=== PATIENT | male | born 1975 | race Caucasian/White ===

== ENCOUNTER 2019-02-07 09:21 | Emergency (ER) | payer BC, OTHER ==
[~2019-02-07] VITALS: Ht 177.8 cm; Wt 77.1 kg
[~2019-02-07 09:21] MED LIST: NAPR-243 PO; SULF1TAB38 PO; TRM50T PO; [UNRECOGNIZED DRUG - REMARK]
--- OUTSIDE RECORDS SUMMARY | 2019-02-07 09:27 | XMS REPORT | Continuity of Care Document ---
Author Organization Unknown Address Unknown Allergies Active Description Code Type Severity Reaction Onset Reported/Identified Relationship to Patient Clinical Status Yes NO KNOWN DRUG ALLERGIES UNKNOWN NO KNOWN DRUG ALLERG Yes No Known Drug Allergies [id number] Drug Allergy Unknown N/A 05/16/2013 Medications There is no data. Problems Date Dx Coded Attending Type Code Diagnosis Diagnosed By 08/10/2017 Obed Lentz 274.10 GOUTY NEPHROPATHY, UNSPECIFIED 08/10/2017 Obed Lentz 729.5 PAIN IN LIMB 08/10/2017 Obed Lentz M10.351 GOUT DUE TO RENAL IMPAIRMENT, RIGHT HIP 08/10/2017 Obed Lentz M79.671 PAIN IN RIGHT FOOT 08/10/2017 Obed Lentz 274.10 GOUTY NEPHROPATHY, UNSPECIFIED 08/10/2017 Obed Lentz 729.5 PAIN IN LIMB 08/10/2017 Obed Lentz M10.351 GOUT DUE TO RENAL IMPAIRMENT, RIGHT HIP 08/10/2017 Obed Lentz M79.671 PAIN IN RIGHT FOOT Procedures There is no data. Results Test Result Range Uric Acid - 08/04/17 14:54 Uric Acid 7.9 mg/dL 2.6-7.2 Comprehensive Metabolic Panel - 11/10/17 15:30 Albumin 4.0 g/dL 3.6-5.1 ALP 76 U/L 35-130 ALT 33 U/L 6-45 Anion Gap 14 6-14 AST 19 U/L 2-40 BUN 12 mg/dL 5-25 Calcium 9.4 mg/dL 8.3-10.4 Chloride 110 mmol/L 95-114 CO2 23 mEq/L 22-33 Creat 1.18 mg/dL 0.50-1.50 eGFR 67 mL/min/1.73m2 >59 Globulin 2.9 g/dL 2.3-3.5 Glucose 104 mg/dL 70-110 Osmo 295 280-295 Potassium 4.2 mmol/L 3.5-5.3 Sodium 143 mmol/L 134-148 TBil 1.5 mg/dL 0.2-1.2 TP 6.9 g/dL 6.0-8.3 QuantiFERON Client Incubated - 12/08/17 12:09 QuantiFERON TB Gold Negative Negative QuantiFERON Criteria Comment QuantiFERON TB Ag Value 0.03 IU/mL QuantiFERON Nil Value 0.05 IU/mL QuantiFERON Mitogen Value 6.80 IU/mL QFT TB Ag minus Nil Value <0.00 IU/mL Interpretation: Comment Encounters ACCT No. Visit Date/Time Discharge Status Pt. Type Provider Facility Loc./Unit Complaint [id number] 05/16/2013 00:31:00 05/16/2013 01:52:00 DIS Emergency [id number] 02/07/2019 09:22:00 ACT Emergency ZANE RODRIGUEZ, NIKOLAI Spears Via [facility] ER L HAND INJ [id number] 12/08/2017 12:06:00 12/08/2017 23:59:00 DIS Outpatient Shahab Burroughs [id number] 11/10/2017 15:22:00 11/10/2017 23:59:00 DIS Outpatient Shahab Burroughs [id number] 08/10/2017 10:07:00 08/10/2017 23:59:00 DIS Outpatient Obed Lentz [id number] 08/04/2017 14:47:00 08/04/2017 23:59:00 DIS Outpatient Obed Lentz [id number] 12/14/2017 09:09:00 Document Registration
--- OUTSIDE RECORDS SUMMARY | 2019-02-07 09:27 | XMS REPORT | Continuity of Care Document ---
Author Author [facility] Organization [facility] Address Unknown Phone Unavailable Care Team Providers Care Pediatric Critical Care Nurse Name Role Phone NO, LOCAL PHYSICIAN PP Unavailable Insurance Providers Payer Name Policy Number Subscriber Name Relationship Self Pay Jermaine Novoa 01 Self / Same As Patient Advance Directives Directive Response Recorded Date Advance Directives N 05/16/13 12:33am Organ Donor Y 05/16/13 12:33am Problems No Known Problems or Medical conditions. Social History History Response Recorded Date/Time Alcohol Use Denies Use 05/16/13 12:33am Recreational Drug Use N 05/16/13 12:33am Allergies, Adverse Reactions, Alerts Allergen Type Severity Reaction Last Updated No Known Drug Allergies 05/16/13 Medications Medication Dose Units Route Sig Qty Days Tramadol HCl (Ultram) 50 Mg PO Q4-6HOURS PRN 20 Naproxen (Naprosyn) 1 Each PO TID PRN 20 Trimethoprim/Sulfamethoxazole (Bactrim Ds) 1 Ea PO BID 20 [Cream For Psorisis] Immunizations Name Given Type DTaP 05/16/13 A Response Recorded Date/Time Status not known Unknown Results Test Date Result Interp. Ref. Range Alanine Aminotransferase (ALT/SGPT) March 29, 2012 6:07pm 40 U/L N 30-65 Albumin March 29, 2012 6:07pm 3.7 G/DL N 3.4-5.0 Alkaline Phosphatase March 29, 2012 6:07pm 97 U/L N 50-136 Aspartate Amino Transf (AST/SGOT) March 29, 2012 6:07pm 20 U/L N 15-37 BUN/Creatinine Ratio March 29, 2012 6:07pm 10 - Basophils # (Auto) March 29, 2012 6:07pm 0.1 10^3/uL N 0.0-0.1 Basophils (%) (Auto) March 29, 2012 6:07pm 0 % N 0-10 Blood Urea Nitrogen March 29, 2012 6:07pm 12 MG/DL N 7-18 Calcium Level March 29, 2012 6:07pm 8.3 MG/DL L 8.5-10.1 Carbon Dioxide Level March 29, 2012 6:07pm 27 MMOL/L N 21-32 Chloride Level March 29, 2012 6:07pm 105 MMOL/L N 101-110 Cholesterol Level September 10, 2010 8:05am 143 MG/DL N -200 Creatinine March 29, 2012 6:07pm 1.2 MG/ DL N 0.6-1.3 Eosinophils # (Auto) March 29, 2012 6:07pm 0.2 10^3/uL N 0.0-0.3 Eosinophils (%) (Auto) March 29, 2012 6:07pm 2 % N 0-10 Glucose Level March 29, 2012 6:07pm 83 MG /DL N 74-106 HDL Cholesterol September 10, 2010 8:05am 41 MG/DL N 35-60 Hematocrit March 29, 2012 6:07pm 41 % N 40-54 Hemoglobin March 29, 2012 6:07pm 14.9 G/ DL N 13.3-17.7 Hepatitis B Surface Antigen December 04, 2008 6:00pm Nr - Hepatitis C Antibody December 04, 2008 6:00pm Nr - LDL Cholesterol September 10, 2010 8:05am 88 MG/DL N 0-129 Lymphocytes # (Auto) March 29, 2012 6:07pm 2.8 X 10^3 N 1.0-4.0 Lymphocytes (%) (Auto) March 29, 2012 6:07pm 24 % N 12-44 Mean Corpuscular Hemoglobin March 29, 2012 6:07pm 30 PG N 25-34 Mean Corpuscular Hemoglobin Concent March 29, 2012 6:07pm 36 G/DL N 32-36 Mean Corpuscular Volume March 29, 2012 6:07pm 83 FL N 80-99 Mean Platelet Volume March 29, 2012 6:07pm 9.3 FL N 7.4-10.4 Monocytes # (Auto) March 29, 2012 6:07pm 0.7 X 10^3 N 0.0-1.0 Monocytes (%) (Auto) March 29, 2012 6:07pm 6 % N 0-12 Neutrophils # (Auto) March 29, 2012 6:07pm 7.8 X 10^3 N 1.8-7.8 Neutrophils (%) (Auto) March 29, 2012 6:07pm 68 % N 42-75 Platelet Count March 29, 2012 6:07pm 280 10^3/uL N 130-400 Potassium Level March 29, 2012 6:07pm 3.8 MMOL/L N 3.6-5.0 Red Blood Count March 29, 2012 6:07pm 5.02 10^6/uL N 4.35-5.85 Red Cell Distribution Width March 29, 2012 6:07pm 12.7 % N 10.0-14.5 Sodium Level March 29, 2012 6:07pm 138 MMOL/L N 135-145 Thyroid Stimulating Hormone (TSH) September 10, 2010 8:05am 1.55 UIU/ML N 0.34- 5.60 Total Bilirubin March 29, 2012 6:07pm 1.0 MG/DL N 0.0-1.0 Total Protein March 29, 2012 6:07pm 7.3 G /DL N 6.4-8.2 Triglycerides Level September 10, 2010 8:05am 69 MG/DL N 30.0-150.0 Uric Acid September 10, 2010 8:05am 7.8 MG/DL H 2.6-7.2 VLDL Cholesterol September 10, 2010 8:05am 14 MG/DL N 5-40 White Blood Count March 29, 2012 6:07pm 11.5 10^3/uL H 4.3-11.0 Estimat Glomerular Filtration Rate March 29, 2012 6:07pm > 60 - Encounters Encounter Location Date/Time Registered Emergency Room [facility] 05/16/13 12:31am
--- NOTE | 2019-02-07 09:56 | NUR ---
RING REMOVED CUT OF 4TH FINGER DUE TO SWELLING
[2019-02-07] MEDS ORDERED: LIDOCAINE 1% INJ 20 ML 20 ML VIAL INJ ONE (10:00)
[2019-02-07] MEDS ORDERED: TETANUS,DIPTH,PERTUSS P/F (BOOSTRIX) 0.5 ML VIAL IM ONE (10:00)
[2019-02-07] MEDS ORDERED: cefTRIAXone 1,000 MG/2.86 ml vial (IM ONLY) IM ONE (10:00)
[2019-02-07] MEDS ORDERED: CEPH500T PO (10:06)
--- NOTE | 2019-02-07 10:06 | ED Upper Extremity ---
General Chief Complaint: Upper Extremity Stated Complaint: L HAND INJ Nursing Triage Note: WAS WORKING ON EQUIPMENT AND STABBED HIS L HAND BELOW THUMB WITH SCREW STAFF DESIGN ENGINEER. Nursing Sepsis Screen: No Definite Risk Source: patient Exam Limitations: no limitations History of Present Illness Date Seen by Provider: Feb 07, 2019 Time Seen by Provider: 09:46 Initial Comments Here with injury to the left hand that he injured yesterday when using a screwdriver. He states the screwdriver was dirty and he slipped and poked it into his left hand at the base of his thumb. Overnight he has noted swelling to his left hand with pain. Also notes swelling to the fingers including his left fourth finger where he is wearing his wedding ring. He is unable to get that off. Tetanus is not up-to-date. Denies other injury. Onset: yesterday Severity: moderate Pain/Injury Location: left hand Method of Injury: direct blow, other (puncture wound) Modifying Factors: Worse With Movement; Improves With Rest Allergies and Home Medications Allergies Coded Allergies: No Known Drug Allergies (Unverified , 05/16/13) Home Medications Naproxen 500 Mg Tablet, 1 EACH PO TID PRN FOR PAIN Prescribed by: SHERIE DOTSON on 05/16/13128 Tramadol Hcl 50 Mg Tab, 50 MG PO Q4-6HOURS PRN FOR PAIN Prescribed by: SHERIE DOTSON on 05/16/13128 Trimethoprim/Sulfamethoxazole 1 Ea Tablet, 1 EA PO BID FOR INFECTION Prescribed by: SHERIE DOTSON on 05/16/13128 Patient Home Medication List Home Medication List Reviewed: Yes Review of Systems Constitutional: see HPI; No chills, No fever Respiratory: no symptoms reported Cardiovascular: no symptoms reported Musculoskeletal: joint pain, muscle pain, muscle stiffness Skin: see HPI, change in color, lesions Past Aqnuqwi-Tmeqlo-Peimbm Hx Past Med/Social Hx: Reviewed Nursing Past Med/Soc Hx Patient Social History Alcohol Use: Occasionally Uses Recreational Drug Use: No Smoking Status: Never a Smoker Recent Foreign Travel: No Contact w/Someone Who Travel: No Recent Infectious Disease Expo: No Immunizations Up To Date Tetanus Booster (TDap): More than 5yrs Seasonal Allergies Seasonal Allergies: No Past Medical History Surgeries: Yes (hernia) Respiratory: No Cardiac: No Neurological: No Sexually Transmitted Disease: No Gastrointestinal: No Musculoskeletal: No Endocrine: No Cancer: No Psychosocial: No Integumentary: Yes Psoriasis Blood Disorders: No Family Medical History Reviewed Nursing Family Hx Physical Exam Vital Signs Vital Signs - First Documented 02/07/19 09:28 Temp 98.9 Pulse 71 Resp 18 B/P (MAP) 140/84 (102) Pulse Ox 98 O2 Delivery Room Air Capillary Refill : Less Than 3 Seconds Height, Weight, BMI Height: 5'10" Weight: 170lbs. oz. 77.043028db; 24.39 BMI Method:Stated General Appearance: WD/WN, no apparent distress Cardiovascular: regular rate, rhythm, no murmur Respiratory: lungs clear, normal breath sounds Hand: Left, abrasions (abrasion/CT/pulmonary the left hand at the base of the thumb.), limited ROM, soft tissue tenderness, stiffness, swelling (findings noted to palmar surface but to a greater extent on the dorsum of the mid hand. Also noted to be affecting the second, third and fourth fingers.) Neurologic/Psychiatric: alert, oriented x 3 Skin: warm/dry, ecchymosis, other (. Erythema) Progress/Results/Core Measures Results/Orders My Orders Orders - NIKOLAI DEGROOT MD Ceftriaxone For Im Use (Rocephin For Im (02/07/19 10:00) Dipht,Pertuss(Acell),Tet Adult (Boostrix (02/07/19 10:00) Lidocaine 1% Inj 20 Ml (Xylocaine 1% Inj (02/07/19 10:00) Vital Signs/I&O 02/07/19 09:28 Temp 98.9 Pulse 71 Resp 18 B/P (MAP) 140/84 (102) Pulse Ox 98 O2 Delivery Room Air Blood Pressure Mean: 102 Progress Progress Note : Progress Note Seen and evaluated. Tetanus ordered. Rocephin 1 g IM due to concerns about infection. We will continue outpatient antibiotics. Wedding ring removed due to swelling but patient was unable to take it off on his own. Ring had to be cut and Ring was given that the patient. Discharged home with return precautions. Patient verbalize understanding instructions and agreement with plan. Departure Impression Primary Impression: Puncture wound of left hand with infection Qualified Codes: S61.432A - Puncture wound without foreign body of left hand, initial encounter; L08.9 - Local infection of the skin and subcutaneous tissue, unspecified Disposition: 01 HOME, SELF-CARE Condition: Stable Departure-Patient Inst. Decision time for Depature: 10:04 Referrals: NO,LOCAL PHYSICIAN (PCP/Family) Primary Care Physician Patient Instructions: Wound Infection, Hand Pain (DC) Add. Discharge Instructions: All discharge instructions reviewed with patient and/or family. Voiced understanding. You may use topical antibiotic over puncture site with Band-Aid or dressing. You should rest the hand. You may use ice packs to reduce swelling as well as elevation. Take medication as directed. You may use Aleve 2 tablets twice daily for the pain. You may use Tylenol/acetaminophen 1000 mg every 8 hours as needed for pain as well. Follow-up with your Dr. in a few days for recheck. Return for worse pain, swelling, weakness, red streaks up the hand or arm, foul-smelling drainage or other concerns as needed. Scripts Cephalexin (Cephalexin) 500 Mg Tablet 500 MG PO QID, #20 TAB 0 Refills Prov: NIKOLAI DEGROOT MD 02/07/19 NIKOLAI DEGROOT MD Feb 07, 2019 10:06
[2019-02-07 10:20] VITALS: BP 140/84
== END 2019-02-07 10:21 | disposition home or self-care (01) ==
LOC: EDUNIT# 09:21 → ER 09:22
DX: S61.432A Puncture wound without foreign body of left hand, initial encounter (principal); L08.9 Local infection of the skin and subcutaneous tissue, unspecified; Z98.890 Other specified postprocedural states; Z23 Encounter for immunization; W27.8XXA Contact with other nonpowered hand tool, initial encounter
CPT/HCPCS: 90471; 90715; 96372; 99284

== ENCOUNTER 2019-02-23 09:23 | Emergency (ER) | payer BC ==
[~2019-02-23] VITALS: Ht 177.8 cm; Wt 86.2 kg
[~2019-02-23 09:23] MED LIST changes: +CEPH500T PO
--- OUTSIDE RECORDS SUMMARY | 2019-02-23 10:05 | XMS REPORT | Continuity of Care Document ---
Author Organization Unknown Address Unknown Allergies Active Description Code Type Severity Reaction Onset Reported/Identified Relationship to Patient Clinical Status Yes NO KNOWN DRUG ALLERGIES UNKNOWN NO KNOWN DRUG ALLERG Yes No Known Drug Allergies [id number] Drug Allergy Unknown N/A 05/16/2013 Medications There [...] Status Pt. Type Provider Facility Loc./Unit Complaint [id number] 02/07/2019 09:22:00 02/07/2019 10:21:00 DIS Emergency ZANE RODRIGUEZ, NIKOLAI Spears Via [facility] L HAND INJ [id number] 05/16/2013 00:31:00 05/16/2013 01:52:00 DIS Emergency [id number] 12/08/2017 12:06:00 12/08/2017 23:59:00 DIS Outpatient Shahab Burroughs [id number] 11/10/2017 15:22:00 11/10/2017 23:59:00 DIS Outpatient Shahab Burroughs [id number] 08/10/2017 10:07:00 08/10/2017 23:59:00 DIS Outpatient Obed Lentz [id number] 08/04/2017 14:47:00 08/04/2017 23:59:00 DIS Outpatient Obed Lentz [id number] 12/14/2017 09:09:00 Document Registration
--- NOTE | 2019-02-23 10:34 | NUR ---
RESTING IN CHAIR. NOTIFEID OF BUSY ER WITH LONG WAIT TIME. DENIES NEEDS AT THIS TIME.
--- NOTE | 2019-02-23 11:18 | ED Integumentary General ---
General Chief Complaint: Skin/Wound Problems Stated Complaint: WOUND CHECK Nursing Triage Note: STATES HE IS FEELING MORE PINS AND NEEDLES IN LEFT THUMB SINCE BEING OFF HIS ABX. 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 Source: patient Exam Limitations: no limitations History of Present Illness Date Seen by Provider: February 23, 2019 Time Seen by Provider: 12:10 Initial Comments 43-year-old male who presents to the emergency room with complaints of a sensation of pins and needles and pain in his left thumb with movement after he ran a screwdriver through his hand 14 days ago. He was seen and evaluated initially and placed on antibiotics and has had no problems since other than the sensation of pins and needles and pain in his left thumb. Allergies and Home Medications Allergies Coded Allergies: No Known Drug Allergies (Unverified , 05/16/13) Home Medications Cephalexin 500 Mg Tablet, 500 MG PO QID Prescribed by: NIKOLAI DEGROOT on 02/07/19 1006 Naproxen 500 Mg Tablet, 1 EACH PO TID PRN FOR PAIN Prescribed by: SHERIE DOTSON on 05/16/13128 Tramadol Hcl 50 Mg Tab, 50 MG PO Q4-6HOURS PRN FOR PAIN Prescribed by: SHERIE DOTSON on 05/16/13128 Trimethoprim/Sulfamethoxazole 1 Ea Tablet, 1 EA PO BID FOR INFECTION Prescribed by: SHERIE DOTSON on 05/16/13128 Patient Home Medication List Home Medication List Reviewed: Yes Review of Systems Review of Systems Constitutional: see HPI; No chills, No fever Musculoskeletal: see HPI, joint pain (left thumb) All Other Systems Reviewed Negative Unless Noted: Yes Past Xxscihi-Kxffid-Gafniw Hx Past Med/Social Hx: Reviewed Nursing Past Med/Soc Hx Patient Social History Alcohol Use: Denies Use Recreational Drug Use: No Smoking Status: Never a Smoker Recent Foreign Travel: No Contact w/Someone Who Travel: No Recent Infectious Disease Expo: No Immunizations Up To Date Tetanus Booster (TDap): More than 5yrs Seasonal Allergies Seasonal Allergies: No Past Medical History Surgeries: Yes (hernia) Respiratory: No Cardiac: No Neurological: No Sexually Transmitted Disease: No Gastrointestinal: No Musculoskeletal: No Endocrine: No Cancer: No Psychosocial: No Integumentary: Yes Psoriasis Blood Disorders: No Family Medical History Reviewed Nursing Family Hx Physical Exam Vital Signs Vital Signs - First Documented 5/1/19 09:43 Temp 98.5 Pulse 70 Resp 16 B/P (MAP) 120/78 (92) Pulse Ox 96 O2 Delivery Room Air Capillary Refill : Less Than 3 Seconds General Appearance: WD/WN, no apparent distress Cardiovascular: normal peripheral pulses, regular rate, rhythm, no edema, no gallop, no JVD, no murmur Respiratory: chest non-tender, lungs clear, normal breath sounds, no respiratory distress, no accessory muscle use Extremities: normal capillary refill, other (full range of motion of the left hand.) Neurologic/Psychiatric: alert, normal mood/affect, oriented x 3 Skin: normal color, warm/dry Progress/Results/Core Measures Results/Orders My Orders Orders - ELIZABETH MILLER Hand, Left, 3 Views (02/23/19 11:10) Vital Signs/I&O 02/23/19 02/23/19 09:43 12:19 Temp 98.5 98.5 Pulse 70 70 Resp 16 16 B/P (MAP) 120/78 (92) 120/78 (92) Pulse Ox 96 96 O2 Delivery Room Air Blood Pressure Mean: 92 Diagnostic Imaging Comments NAME: JERMAINE NOVOA MED REC#: [id number] PT STATUS: DEP ER : 1975 PHYSICIAN: ELIZABETH MILLER ADMIT DATE: 02/23/19/ER Signed Date of Exam: 02/23/19 HAND, LEFT, 3 VIEWS CLINICAL INDICATION: Wound check of left hand. Patient states stuck a screwdriver into palm side of the hand at first metacarpal area. Patient states he has been on antibiotics but thumb is still tingling and feeling weird. EXAM: X-ray of the left hand, 3 views. COMPARISON: X-ray of the left hand dated 05/16/2013. FINDINGS: There is no acute fracture or dislocation. There is no subcutaneous air seen. There is interval development of a small chronic calcification dorsal to the first IP joint and adjacent to the volar aspect of the distal radius. There is mild spurring of the first MCP joint and first IP joint. There is mild spurring of the fifth DIP joint. IMPRESSION: 1: There is no acute fracture or dislocation. There is no subcutaneous air seen or radiodense foreign object. 2: Degenerative changes of the left hand. Dictated by: Dictated on workstation # [id number] Dict: 02/23/19 1148 Trans: 02/23/19 1707 Interpreted by: RIGO TODD MD Electronically signed by: RIGO TODD MD 02/23/19 1707 Departure Impression Primary Impression: left hand tingling sensation Disposition: HOME, SELF-CARE Condition: Stable/Unchanged Departure-Patient Inst. Decision time for Depature: 12:12 Referrals: NO,LOCAL PHYSICIAN (PCP/Family) Primary Care Physician Patient Instructions: LOCAL PHYSICIAN LIST, Wound Care (DC) Add. Discharge Instructions: You may use ibuprofen and Tylenol as directed by the bottle for discomfort. Follow-up with a primary care provider if symptoms persist. Return back to the emergency room for worsening symptoms or concerns as needed. All discharge instructions reviewed with patient and/or family. Voiced understanding. ELIZABETH MILLER February 23, 2019 11:18
--- NOTE | 2019-02-23 11:55 | Diagnostic Imaging Report ---
CLINICAL INDICATION: Wound check of left hand. Patient states stuck a screwdriver into palm side of the hand at first metacarpal area. Patient states he has been on antibiotics but thumb is still tingling and feeling weird. EXAM: X-ray of the left hand, 3 views. COMPARISON: X-ray of the left hand dated 05/16/2013. FINDINGS: There is no acute fracture or dislocation. There is no subcutaneous air seen. There is interval development of a small chronic calcification dorsal to the first IP joint and adjacent to the volar aspect of the distal radius. There is mild spurring of the first MCP joint and first IP joint. There is mild spurring of the fifth DIP joint. IMPRESSION: 1: There is no acute fracture or dislocation. There is no subcutaneous air seen or radiodense foreign object. 2: Degenerative changes of the left hand. Dictated by: Dictated on workstation # [id number]
[2019-02-23 12:19] VITALS: BP 120/78
== END 2019-02-23 12:19 | disposition home or self-care (01) ==
LOC: EDUNIT# 09:23 → ER 09:24
DX: R20.2 Paresthesia of skin (principal); Z98.890 Other specified postprocedural states
CPT/HCPCS: 73130

== ENCOUNTER → 2022-03-13 | Outpatient (CLI) | payer BC ==
--- NOTE | 2022-03-13 17:07 | Diagnostic Imaging Report ---
PROCEDURE: US Abdomen, limited. TECHNIQUE: Multiple realtime grayscale images were obtained over the abdomen in various projections. INDICATION: Inguinal abdominal pain COMPARISON: None FINDINGS: Multiple images were obtained in the right inguinal region in the area of pain. These were obtained both supine and standing, and with and without Valsalva. No hernia or protruding bowel is seen. IMPRESSION: 1. No sonographic evidence of right inguinal hernia. Dictated by: Dictated on workstation # [id number]
== END ==
LOC: RAD 15:15
PROVIDERS: ATTEND Surgery
DX: R10.30 Lower abdominal pain, unspecified (principal)
CPT/HCPCS: 76705

== ENCOUNTER → 2022-03-26 | Outpatient (CLI) | payer BC ==
[~2022-03-26] VITALS: Ht 177.8 cm; Wt 71.1 kg
== END | disposition home or self-care (01) ==
LOC: PREOP 05:51
PROVIDERS: ATTEND Surgery
DX: Z01.818 Encounter for other preprocedural examination (principal)

== ENCOUNTER 2022-04-08 08:58 | Day surgery (SDC) | payer BC ==
[~2022-04-08] VITALS: Ht 178 cm; Wt 71.1 kg
[2022-04-08] MEDS ORDERED: LACTATED RINGERS 1,000 ML IV STA (09:19)
[2022-04-08 09:20] VITALS: BP 121/95
[2022-04-08] MEDS ORDERED: LACTATED RINGERS 1,000 ML IV ONE (09:25)
[2022-04-08] MEDS ORDERED: USTE45DI SQ (09:40)
--- NOTE | 2022-04-08 10:19 | Progress Note-Pre Operative ---
Pre-Operative Progress Note H&P Reviewed The H&P was reviewed, patient examined and no changes noted. Date Seen by Provider: Apr 08, 2022 Time Seen by Provider: 10:18 Date H&P Reviewed: Apr 08, 2022 Time H&P Reviewed: 10:19 Pre-Operative Diagnosis: family hx colon cancer CITLALLI LUNA DO Apr 08, 2022 10:19
[2022-04-08] MEDS ORDERED: PROPOFOL INJECTION 50 ML IV ONE (11:09)
--- NOTE | 2022-04-08 11:33 | Anesthesia-General Post-Op ---
MAC Patient Condition Mental Status/LOC: Same as Preop Cardiovascular: Satisfactory Nausea/Vomiting: Absent Respiratory: Satisfactory Pain: Controlled Complications: Absent Post Op Complications Complications None Follow Up Care/Instructions Patient Instructions None needed. Anesthesiology Discharge Order Discharge Order Patient is doing well, no complaints, stable vital signs, no apparent adverse anesthesia problems. No complications reported per nursing. SHERINE CASTELLON CRNA Apr 08, 2022 11:33
[2022-04-08 11:35] VITALS: BP 129/68
--- NOTE | 2022-04-08 11:39 | Progress Note-Post Operative ---
Post-Operative Progess Note Surgeon (s)/Analyzer Sales (s) Surgeon CITLALLI LUNA DO Analyzer Sales: na Pre-Operative Diagnosis family hx colon cancer Post-Operative Diagnosis post fissure Procedure & Operative Findings Date of Procedure 04/08/22 Procedure Performed/Findings colonoscopy Anesthesia Type per digital strategist Estimated Blood Loss Estimated blood loss (mL): none Specimens/Packing Specimens Removed na CITLALLI LUNA DO Apr 08, 2022 11:39
--- NOTE | 2022-04-08 11:41 | Discharge Inst-Simple/Standard ---
Discharge Inst-Standard Patient Instructions/Follow Up Plan of Care/Instructions/FU: 2 weeks Sridevi Diltiazem cream TID ([facility]) Keep stools soft. Use stools softener if needed. Activity as Tolerated: Yes Discharge Diet: Regular Diet (high fiber) CITLALLI LUNA DO Apr 08, 2022 11:40
[2022-04-08 11:57] VITALS: BP 111/67
--- NOTE | 2022-04-08 21:39 | OPERATIVE REPORT ---
DATE OF SERVICE: 04/08/2022 PREOPERATIVE DIAGNOSIS: Family history of colon cancer. POSTOPERATIVE DIAGNOSIS: Posterior fissure. PROCEDURE: Colonoscopy. SURGEON: Citlalli Laureano DO ANESTHESIA: Per SPORTS MARKETING COORDINATOR. ESTIMATED BLOOD LOSS: None. COMPLICATIONS: None. INDICATIONS: The patient is a 46-year-old male with family history of colon cancer. He understands risks and benefits of procedure and wishes to proceed. Consent was signed in the chart. DESCRIPTION OF PROCEDURE: The patient was taken to the endoscopy suite, placed in left lateral recumbent position. Timeout was performed. Digital rectal exam was performed noting a palpable posterior fissure with sentinel polyp. No other polyps, masses or ulcerations. Scope was inserted in the rectum, advanced all the way to cecum with minimal difficulty. Prep was adequate. Scope was slowly retracted back. No polyps, masses or ulcerations within the cecum, ascending, transverse, descending and sigmoid colon. Once in the rectum, scope was retroflexed noting no other pathology. Scope was returned to its normal position, slowly withdrawn until completely removed. The patient tolerated procedure well without any complications. He was taken to recovery room in stable condition. RECOMMENDATIONS: The patient will start on diltiazem cream three times a day. He will follow up with us in 2 weeks to reevaluate. He has also been having some right groin pain, which we will further evaluate as well. The patient will need repeat colonoscopy in 5 years. If he has any problems prior to that, he should be reevaluated at that time. Job ID: [id number] DocumentID: [id number] Dictated Date: 04/08/2022 11:42:53 Party Plan Sales Director Date: 04/08/2022 21:38:24 Dictated By: CITLALLI LAUREANO DO
== END 2022-04-08 12:18 | disposition home or self-care (01) ==
LOC: ENDO 08:58
PROVIDERS: ATTEND Surgery
DX: K60.2 Anal fissure, unspecified (principal); Z80.0 Family history of malignant neoplasm of digestive organs

== ENCOUNTER → 2022-04-11 | Outpatient (CLI) | payer BC ==
[~2022-04-11] MED LIST changes: +CATHETER FLUSH 10 ML SYR IV PRN; +HOLD METFORMIN - RECEIVED CONTRAST 20 ML VIAL IV SCH; +IOHEXOL 350 MG/ML 100 ML (OMNIPAQUE 350) VIAL IV ONE; +NS 100 ML (IVPB) BAG IV ONE; +USTE45DI SQ
--- NOTE | 2022-04-11 09:40 | Diagnostic Imaging Report ---
EXAMINATION: CT abdomen and pelvis with intravenous contrast. TECHNIQUE: Multiple contiguous axial images were obtained through the abdomen and pelvis after the uneventful administration of intravenous contrast. All CT scans use one or more of the following dose optimizing techniques: automated exposure control, MA and/or KvP adjustment based on patient size and exam type or iterative reconstruction. HISTORY: Right lower quadrant pain COMPARISON: None available. FINDINGS: Limited views of the lower thorax are unremarkable. The liver is normal without focal lesion. There is no biliary ductal dilation. Gallbladder is normal. Pancreas is normal. Spleen is normal. Adrenal glands are normal. The kidneys are normal. There is no hydronephrosis. Urinary bladder is normal. Bowel is normal in caliber without obstruction or inflammation. The appendix is normal. No free fluid or air. No abdominal or pelvic lymphadenopathy. Aorta is normal in caliber without aneurysm. There are no suspicious osseus lesions. There appears to have been a right inguinal hernia repair. No evidence for recurrent hernia is seen. IMPRESSION: 1. No acute abnormality in the abdomen or pelvis. Normal appendix. Dictated by: Dictated on workstation # [id number]
== END ==
LOC: RAD 09:15
PROVIDERS: ATTEND Surgery
DX: R10.31 Right lower quadrant pain (principal)
CPT/HCPCS: 74177